=== PATIENT | male | born 1960 | race Caucasian/White ===

== ENCOUNTER 2021-10-08 00:14 | Emergency (ER) | payer MEDICAID ==
--- NOTE | 2021-10-08 00:49 | EDM.PDOC ---
ED HPI GENERAL MEDICAL PROBLEM - General Chief Complaint: Abdominal Pain Stated Complaint: STOMACH PAIN/COVID+ Time Seen by Provider: 10/08/21 00:40 Source of Information: Reports: Patient, Old Records History Limitations: Reports: No Limitations - History of Present Illness INITIAL COMMENTS - FREE TEXT/NARRATIVE: Camacho is a 61-year-old male presenting to the ED with complaint of epigastric pain when he drinks water. The patient was recently diagnosed with COVID-19 by his report 3 days ago but his epigastric discomfort started 2 ago and the patient has not eaten anything all week. The patient's Covid symptoms started on Saturday or Saturday this week (4 or 5 days ago). Patient has not undergone monoclonal antibody therapy yet. He had the Covid test done at the [facility] and got his results for Covid Saturday afternoon. Nobody is called to schedule him for the therapy. The patient is unvaccinated for COVID-19. The patient reports his last bowel movement was several days ago because he really has not eaten anything all week. He states when he tries to eat or drink anything he just ends up vomiting it. Abdominal Pain Score (Numeric/FACES): 8 - Related Data Allergies Allergy/AdvReac Type Severity Reaction Status Date / Time No Known Allergies Allergy Verified 01/27/15 18:02 Home Meds: Home Meds amLODIPine Besylate [Amlodipine Besylate] 10 mg PO DAILY 10/08/21 [History] atorvaSTATin [Lipitor] 10 mg PO DAILY 10/08/21 [History] ED ROS GENERAL - Review of Systems Review Of Systems: See Below Constitutional: Reports: Fever, Chills, Malaise, Weakness, Decreased Appetite HEENT: Reports: Eye Discharge Respiratory: Reports: Shortness of Breath, Cough Cardiovascular: Reports: No Symptoms Endocrine: Reports: Fatigue GI/Abdominal: Reports: Abdominal Pain (Severe epigastric pain especially after eating or drinking anything.), Decreased Appetite, Distension, Nausea, Vomiting : Reports: No Symptoms Musculoskeletal: Reports: Muscle Pain Skin: Reports: No Symptoms Neurological: Reports: Headache Psychiatric: Reports: No Symptoms Hematologic/Lymphatic: Reports: No Symptoms Immunologic: Reports: No Symptoms ED EXAM, GENERAL - Physical Exam Exam: See Below Exam Limited By: No Limitations General Appearance: Alert, Anxious, Mild Distress Eye Exam: Bilateral Eye: EOMI, PERRL Head: Atraumatic, Normocephalic Neck: Normal Inspection, Supple, Non-Tender, Full Range of Motion. No: Lymphadenopathy (R), Lymphadenopathy (L) Respiratory/Chest: No Respiratory Distress, No Accessory Muscle Use, Rhonchi (Scattered rhonchi bilaterally). No: Retractions Cardiovascular: Normal Peripheral Pulses, Regular Rate, Rhythm, No Murmur GI/Abdominal: Distended, Guarding, Tender (Tenderness with palpation over the epigastrium), Abnormal Bowel Sounds (Markedly diminished bowel sounds). No: Rigid, Rebound Back Exam: Normal Inspection Extremities: Normal Inspection Neurological: Alert, Oriented, Normal Cognition, No Motor/Sensory Deficits Psychiatric: Anxious Skin Exam: Warm, Dry Course - Vital Signs Last Recorded V/S: Last Vital Signs Temp 36.5 C 10/08/21 01:02 CDT Pulse 88 10/08/21 01:02 CDT Resp 18 10/08/21 01:02 CDT BP 138/64 10/08/21 01:02 CDT Pulse Ox 95 10/08/21 01:02 CDT - Orders/Labs/Meds Orders: Active Orders 24 hr Category Date Time Status Abdomen 1V Upright [CR] Stat Exams 10/08/21 00:50 Taken Chest 1V Frontal [CR] Stat Exams 10/08/21 00:50 Taken COMPREHENSIVE METABOLIC PN,CMP [CHEM] Stat Lab 10/08/21 01:00 Received CRP [C-REACTIVE PROTEIN] [CHEM] Stat Lab 10/08/21 01:00 Received FERRITIN [CHEM] Stat Lab 10/08/21 01:00 Received LACTATE DEHYDROGENASE,LDH [CHEM] Stat Lab 10/08/21 01:00 Received LACTIC ACID [CHEM] Stat Lab 10/08/21 01:00 Received LIPASE [CHEM] Stat Lab 10/08/21 01:00 Received Labs: Laboratory Tests 10/08/21 10/08/21 10/08/21 Range/Units 01:00 DUST PULLER 01:00 DUST PULLER 01:00 DUST PULLER WBC 6.3 (4.5-11.0) K/uL RBC 5.59 (4.30-5.90) M/uL Hgb 16.3 H (12.0-15.0) g/dL Hct 48.2 (40.0-54.0) % MCV 86 (80-98) fL MCH 29 (27-31) pg MCHC 34 (32-36) % Plt Count 128 L (150-400) K/uL Neut % (Auto) 85.5 H (36-66) % Lymph % (Auto) 7.8 L (24-44) % [place] % (Auto) 6.5 H (2-6) % Eos % (Auto) 0.0 L (2-4) % Baso % (Auto) 0.2 (0-1) % D-Dimer, Quantitative 1024.56 H (0.0-500.0) ng/mL Procalcitonin 0.06 ng/mL Meds: Medications Discontinued Medications Generic Name Dose Route Start Last Admin Trade Name Freq PRN Reason Stop Dose Admin Ondansetron HCl 4 mg 10/08/21 01:34 DUST PULLER 10/08/21 01:41 CDT Ondansetron 4 Mg Tab.Dis PO 10/08/21 01:35 DUST PULLER 4 mg ONETIME ONE Administration - Radiology Interpretation Free Text/Narrative:: I reviewed the 1 view chest x-ray showing scattered groundglass infiltrates in bilateral lower half of the lungs consistent with pneumonia due to COVID-19. I reviewed the 1 view abdomen x-ray (upright) that does not show any evidence for obstruction. There are no air-fluid levels. There is no suggestion of significant constipation. - Re-Assessments/Exams Free Text/Narrative Re-Assessment/Exam: 10/08/21 01:46 CDT reviewed the patient's labs showing a leukocyte count of 6.3, hemoglobin of 16.3 with a Jeovanny crit of 48.2 and a platelet count 128,000. This would suggest some hemoconcentration due to dehydration. The comprehensive metabolic panel was unremarkable with a sodium 137, potassium 3.6, chloride 97, the bicarbonate of 28, BUN of 19 with a creatinine of 1.04 and a glucose of 104. Calcium is 8.2 with an albumin of 3.4 and mild elevation of the AST at 62, ALT at 81, alkaline phosphatase at 90 with a normal lipase at 214. The Covid markers are significant for a D-dimer of 1024, CRP of 4.23, LDH of 421, lactate of 1.7, and ferritin of. The patient was given Zofran 4 mg ODT for his nausea. There is no evidence for obstruction but he likely has gastrointestinal distress due to the COVID-19. He is currently not requiring any oxygen so he does not require hospitalization. He has not been scheduled for monoclonal antibody therapy yet so I have arranged for that and ordered it for Saturday. In the meantime, we will send him home with a prescription for Zofran ODT which is in the [facility] machine and I recommend that he excelsior picker famotidine which is available [id number] as Pepcid AC. He should continue to eat with soft foods or liquid diet. He will be contacted on Saturday for the monoclonal antibody therapy. Departure - Departure Time of Disposition: 01:49 Disposition: Home, Self-Care Clinical Impression: COVID-19, Pneumonia due to COVID-19 virus, Epigastric pain Nausea and vomiting Qualifiers: Vomiting type: bilious vomiting Qualified Code(s): R11.14 - Bilious vomiting - Discharge Information Instructions: 10 Things You Can Do to Manage Your COVID-19 Symptoms at Home - [facility] (06/16/2021), COVID-19: How to Protect Yourself and Others - [facility] Referrals: Provider,Unknown [Primary Care Provider] - Forms: ED Department Discharge Care Plan Goals: Him with a prescription of Zofran ODT to use to control your nausea. I would also recommend having somebody go to the store and excelsior picker some Pepcid AC to help reduce the acid in your stomach which will help relieve your epigastric distress as well. You are developing a viral pneumonia due to Covid which was seen on your chest x-ray. Should you become sufficiently short of breath please return for reevaluation. I have ordered your monoclonal antibody therapy for Saturday morning. Somebody should be contacting you in the morning to give you a time to come in for that infusion. Expect to spend 2 to 3 hours for that infusion. Sepsis Event Note (ED) - Focused Exam Vital Signs: Vital Signs Temp Pulse Resp BP Pulse Ox 10/08/21 01:02 CDT 36.5 C 88 18 138/64 95 10/08/21 01:01 CDT 36.5 C 88 18 138/64 95 - Problem List & Annotations (1) Epigastric pain SNOMED Code(s): 81425464 Code(s): R10.13 - EPIGASTRIC PAIN Status: Acute Priority: High Current Visit: Yes (2) Nausea and vomiting SNOMED Code(s): 80746168 Code(s): R11.2 - NAUSEA WITH VOMITING, UNSPECIFIED Status: Acute Priority: High Current Visit: Yes Qualifiers: Vomiting type: bilious vomiting Qualified Code(s): R11.14 - Bilious vomiting (3) Pneumonia due to COVID-19 virus SNOMED Code(s): 182471874724069989 Code(s): U07.1 - COVID-19; J12.82 - PNEUMONIA DUE TO CORONAVIRUS DISEASE 2019 Status: Acute Priority: High Current Visit: Yes - Problem List Review Problem List Initiated/Reviewed/Updated: Yes - My Orders Last 24 Hours: My Active Orders 10/08/21 00:50 Abdomen 1V Upright [CR] Stat Chest 1V Frontal [CR] Stat 10/08/21 01:00 COMPREHENSIVE METABOLIC PN,CMP [CHEM] Stat CRP [C-REACTIVE PROTEIN] [CHEM] Stat FERRITIN [CHEM] Stat LACTATE DEHYDROGENASE,LDH [CHEM] Stat LACTIC ACID [CHEM] Stat LIPASE [CHEM] Stat - Assessment/Plan Last 24 Hours: My Active Orders 10/08/21 00:50 Abdomen 1V Upright [CR] Stat Chest 1V Frontal [CR] Stat 10/08/21 01:00 COMPREHENSIVE METABOLIC PN,CMP [CHEM] Stat CRP [C-REACTIVE PROTEIN] [CHEM] Stat FERRITIN [CHEM] Stat LACTATE DEHYDROGENASE,LDH [CHEM] Stat LACTIC ACID [CHEM] Stat LIPASE [CHEM] Stat
[2021-10-08 01:02] VITALS: BP 138/64; PULSE 88
[2021-10-08] MEDS ORDERED: Ondansetron 4 MG Tab.DIS PO ONE (01:34)
--- NOTE | 2021-10-09 10:14 | CR ---
Abdomen 1V Upright CLINICAL HISTORY: Epigastric pain and vomiting FINDINGS: There are scattered air-filled loops of small bowel in a nonspecific pattern. No definite free air is seen but the right diaphragm is not on the image IMPRESSION: Nonspecific intestinal gas pattern
--- NOTE | 2021-10-09 10:15 | CR ---
CHEST: Portable 10/08/2021 at 1:14 AM CLINICAL HISTORY:Godfrey virus COMPARISON:None FINDINGS: Heart size and pulmonary vascularity are normal. There are diffuse bilateral pneumonic infiltrates predominating in the lower lobes. Impression: Bilateral pneumonias
== END 2021-10-08 01:15 | disposition home or self-care (01) ==
LOC: JP.ED 00:14
DX: R10.13 Epigastric pain (principal); U07.1 COVID-19; J12.82 Pneumonia due to coronavirus disease 2019; R11.14 Bilious vomiting; Z79.899 Other long term (current) drug therapy
CPT/HCPCS: 36415; 71045; 74018; 80053; 82728; 83605; 83615; 83690; 84145; 85025; 85379; 86140; 99284; A9270

== ENCOUNTER 2022-10-04 09:31 | Day surgery (SDC) | payer MEDICAID ==
[~2022-10-04 09:31] MED LIST: Midazolam 1 MG/ML 2 ML SDV ONE; Propofol 200 MG/20 ML SDV ONE; fentaNYL 50 MCG/ML SDV ONE
[2022-10-04] MEDS ORDERED: Sodium Chloride 0.9% 1,000 ML IV SCH (10:15)
[2022-10-04 11:32] VITALS: BP 141/80; PULSE 54
== END 2022-10-04 11:45 | disposition home or self-care (01) ==
LOC: JP.SDS 09:31
PROVIDERS: ATTEND Surgery
DX: Z12.11 Encounter for screening for malignant neoplasm of colon (principal); I10 Essential (primary) hypertension; E78.5 Hyperlipidemia, unspecified; N17.9 Acute kidney failure, unspecified; E66.9 Obesity, unspecified
CPT/HCPCS: 45378; J2250; J2704; J3010; J7030